=== PATIENT | male | born 1990 | race African-American/Black ===

== ENCOUNTER 2016-08-30 21:22 | Emergency (ER) | payer SELFPAY ==
--- NOTE | 2016-08-30 21:52 | ER Document Report ---
ED Medical Screen (RME) - General Stated Complaint: SORE THROAT Notes: sore throat since saturday denies neck pain intermittent headache, fevers I have greeted and performed a rapid initial assessment of this patient. A comprehensive ED assessment and evaluation of the patient, analysis of test results and completion of the medical decision making process will be conducted by additional ED providers. TRAVEL OUTSIDE OF THE [place] IN LAST 30 DAYS: No - Related Data Allergies/Adverse Reactions: No Known Allergies Allergy (Unverified 07/19/16 05:52)
[2016-08-30] MEDS ORDERED: DEXAMETHASONE SOD PHOS INJ 10 MG/1 ML VIAL IM ONE (23:12)
[2016-08-30] MEDS ORDERED: PENICILLIN G BENZATHINE 1.2 MILLION UNIT/2 ML DISP.SYRIN IM ONE (23:12)
[2016-08-30] MEDS ORDERED: DEXAMETHASONE 4 MG TABLET PO ONE (23:13)
--- NOTE | 2016-08-30 23:17 | ER Document Report ---
ED General - General Chief Complaint: Sore Throat Stated Complaint: SORE THROAT Notes: Patient is a 25-year-old male without past medical history who presents with 2 days of sore throat, fever, and difficulty swallowing. States he's been able to breathe without difficulty and has been able to tolerate his oral secretions but that it hurts to eat or drink. States he's had similar symptoms in the past when he has had strep throat. He has not seen his primary care physician regarding today's concerns. Nothing improves or worsens his discomfort. He denies any headache, neck pain, altered mental status, cough, sputum production , vomiting or diarrhea. TRAVEL OUTSIDE OF THE [place] IN LAST 30 DAYS: No - Related Data Allergies/Adverse Reactions: No Known Allergies Allergy (Unverified 07/19/16 05:52) Past Medical History - General Information source: Patient - Social History Smoking Status: Never Smoker Frequency of alcohol use: None Drug Abuse: None Lives with: Spouse/Significant other Family History: Reviewed & Not Pertinent Patient has suicidal ideation: No Patient has homicidal ideation: No Renal/ Medical History: Denies: Hx Peritoneal Dialysis Review of Systems - Review of Systems Notes: Constitutional: Positive for fever. HENT: Positive sore throat. Eyes: Negative for visual changes. Cardiovascular: Negative for chest pain. Respiratory: Negative for shortness of breath. Gastrointestinal: Negative for abdominal pain, vomiting or diarrhea. Genitourinary: Negative for dysuria. Musculoskeletal: Negative for back pain. Skin: Negative for rash. Neurological: Negative for headaches, weakness or numbness. 10 point ROS negative except as marked above and in HPI. Physical Exam - Vital signs Vitals: Temp Pulse Resp BP Pulse Ox 98.4 F 76 18 125/81 99 08/30/16 21:51 08/30/16 21:51 08/30/16 21:51 08/30/16 21:51 08/30/16 21:51 Interpretation: Normal Notes: PHYSICAL EXAMINATION: GENERAL: Well-appearing, well-nourished and in no acute distress. HEAD: Atraumatic, normocephalic. EYES: Pupils equal round and reactive to light, extraocular movements intact, sclera anicteric, conjunctiva are normal. ENT: nares patent, oropharynx clear without exudates. Palatal petechiae are present. No oral pharyngeal edema or swelling. Moist mucous membranes. NECK: Normal range of motion, bilateral submandibular and anterior cervical lymphadenopathy, no stridor LUNGS: Breath sounds clear to auscultation bilaterally and equal. No wheezes rales or rhonchi. HEART: Regular rate and rhythm without murmurs ABDOMEN: Soft, nontender, normoactive bowel sounds. No guarding, no rebound. No masses appreciated. EXTREMITIES: Normal range of motion, no pitting or edema. No cyanosis. NEUROLOGICAL: No focal neurological deficits. Moves all extremities spontaneously and on command. PSYCH: Normal mood, normal affect. SKIN: Warm, Dry, normal turgor, no rashes or lesions noted. Course - Re-evaluation Re-evalutation: 08/30/16 23:13 Presentation of several days of sore throat in an otherwise well-appearing patient. Rapid strep is positive. History and exam are not consistent with a retropharyngeal abscess or peritonsillar abscess. Airway is patent. No difficulty handling oral secretions. Vitals within normal limits. Patient has been treated with an IM dose of penicillin. At this time will discharge with return precautions and follow-up recommendations. Verbal discharge instructions given a the bedside and opportunity for questions given. Medication warnings reviewed. Patient is in agreement with this plan and has verbalized understanding of return precautions and the need for primary care follow-up in the nex - Vital Signs Vital signs: Temp Pulse Resp BP Pulse Ox 98.1 F 75 16 108/93 H 99 08/30/16 23:23 08/30/16 23:23 08/30/16 23:23 08/30/16 23:23 08/30/16 23:23 Discharge - Discharge Clinical Impression: Strep pharyngitis Condition: Good Disposition: HOME, SELF-CARE Additional Instructions: You have been diagnosed with strep throat based on a positive strep test. You have been treated with a dose of penicillin here in the emergency department and do not need any additional antibiotics. You have also been given a dose of steroids to help with your throat discomfort. Please continue to take ibuprofen 600 mg every 6 hours or Tylenol 1000 mg every 6 hours as needed for throat discomfort. You can also gargle with salt water. Continue to drink plenty of fluids. Follow-up with your primary care doctor in the next several days. Return if you become unable to swallow, have difficulty breathing, pass out, have persistent vomiting that prevents you from being able to tolerate fluids, or have any other symptoms that are concerning to you. Forms: Return to Work
[2016-08-30 23:30] VITALS: BP 108/93
== END 2016-08-30 23:36 | disposition home or self-care (01) ==
LOC: ER 21:22
DX: J02.0 Streptococcal pharyngitis (principal); R50.9 Fever, unspecified
CPT/HCPCS: 87880; 99283

== ENCOUNTER 2017-06-01 22:55 | Emergency (ER) | payer SELFPAY ==
[2017-06-01] MEDS ORDERED: NORMAL SALINE 1000 ML 1,000 ML IV ONE (23:33)
[2017-06-01] MEDS ORDERED: ONDANSETRON HCL INJ/PF 4 MG/2 ML SDV IV ONE (23:33)
--- NOTE | 2017-06-01 23:53 | ER Document Report ---
ED General - General Chief Complaint: Shortness Of Breath Stated Complaint: DIFFICULTY BREATHING Time Seen by Provider: 06/01/17 23:23 Mode of Arrival: Ambulatory Information source: Patient Notes: Patient states that he was lying down to go to bed around 11:00 and developed shortness of breath, weakness and dizziness. Patient does complain of some nausea. Patient denies any vomiting or diarrhea. Patient states that after his dyspnea symptoms started he did start to develop left-sided abdominal tenderness. Patient denies any chest pain. Patient is 4 days status post laparoscopic appendectomy. Patient denies any bowel movement after his surgery. TRAVEL OUTSIDE OF THE [place] IN LAST 30 DAYS: No - HPI Onset: Just prior to arrival Onset/Duration: Sudden Quality of pain: Achy, Dull Pain Level: 2 Associated symptoms: Nausea, Shortness of breath, Weakness. denies: Chest pain , Nonproductive cough, Productive cough, Diarrhea, Fever, Vomiting Exacerbated by: Denies Relieved by: Denies Similar symptoms previously: No Recently seen / treated by doctor: Yes - Related Data Allergies/Adverse Reactions: No Known Allergies Allergy (Verified 06/01/17 23:10) Past Medical History - General Information source: Patient - Social History Smoking Status: Current Every Day Smoker Frequency of alcohol use: None Drug Abuse: None Occupation: Retail Lives with: Family Family History: Reviewed & Not Pertinent Patient has suicidal ideation: No Patient has homicidal ideation: No - Medical History Medical History: Negative Pulmonary Medical History: Reports: Hx Asthma Renal/ Medical History: Denies: Hx Peritoneal Dialysis Past Surgical History: Reports: Hx Appendectomy - Immunizations Hx Diphtheria, Pertussis, Tetanus Vaccination: Yes Review of Systems - Review of Systems Constitutional: No symptoms reported. denies: Fever EENT: No symptoms reported Cardiovascular: Dizziness. denies: Chest pain, Palpitations Respiratory: Short of breath. denies: Cough Gastrointestinal: Abdominal pain, Nausea. denies: Diarrhea, Vomiting Genitourinary: Frequency. denies: Dysuria Male Genitourinary: No symptoms reported Musculoskeletal: No symptoms reported. denies: Back pain Skin: No symptoms reported Hematologic/Lymphatic: No symptoms reported Neurological/Psychological: No symptoms reported Physical Exam - Vital signs Vitals: Temp Pulse BP Pulse Ox 98.3 F 92 119/80 100 06/01/17 23:09 06/01/17 23:09 06/01/17 23:09 06/01/17 23:09 - General General appearance: Alert In distress: Mild - HEENT Head: Normocephalic, Atraumatic Eyes: Normal Conjunctiva: Normal Nasal: Normal Mouth/Lips: Normal Mucous membranes: Normal Neck: Normal, Supple. No: Lymphadenopathy - Respiratory Respiratory status: Tachypnea Chest status: Nontender Breath sounds: Normal. No: Nonproductive cough, Productive cough Chest palpation: Normal. No: Tender - Cardiovascular Rhythm: Regular Heart sounds: S1 appreciated, S2 appreciated Murmur: No - Abdominal Inspection: Healed incision - lap incision sites with steri strips Distension: No distension Bowel sounds: Normal Tenderness: Tender - Left middle quad tenderness Organomegaly: No organomegaly - Back Back: Normal, Nontender. No: CVA tenderness, Vertebra tenderness - Extremities General upper extremity: Normal inspection, Normal ROM General lower extremity: Normal inspection, Normal ROM - Neurological Neuro grossly intact: Yes Cognition: Normal [place] Coma Scale Eye Opening: Spontaneous Rico Coma Scale Verbal: Oriented Rico Coma Scale Motor: Obeys Commands [place] Coma Scale Total: 15 - Psychological Associated symptoms: Normal affect, Normal mood - Skin Skin Temperature: Warm Skin Moisture: Dry Skin Color: Normal Course - Re-evaluation Re-evalutation: 06/01/17 23:[address] Peralta regarding patient presentation, EKG reviewed. Agrees with plan for cardiac enzyme testing. 06/02/17 01:00 While in CAT scan receiving the dye, patient had a sudden onset of nausea with vomiting. Patient was injected with dye and the CTA was performed although trim technician was not able to get the abdominal imaging performed with IV contrast. Additional nausea medications were ordered. 06/02/17 01:58 Pt states that dyspnea symptoms seem to be better at this time. Patient is a feeling very restless and is standing at bedside. We will give Benadryl to treat for medication effects from Compazine. 06/02/17 03:31 Patient reports that abdominal pain is resolved. Patient denies any dyspnea symptoms. Patient does complain of continued to feel restless after taking the Compazine. Additional dose of Benadryl will be given. Consulted with Dr. Raya regarding patient presentation, reviewed EKG as well as diagnostic test results, with discharge plan of care. - Vital Signs Vital signs: Temp Pulse Resp BP Pulse Ox 98.3 F 92 22 H 118/99 H 97 06/01/17 23:09 06/01/17 23:09 06/02/17 03:01 06/02/17 03:00 06/02/17 03:01 - Laboratory Result Diagrams: 06/01/17 23:41 06/01/17 23:41 Laboratory results interpreted by me: 06/01/17 06/01/17 06/02/17 23:41 23:41 02:31 RDW 14.7 H Plt Count 144 L Chloride 108 H Carbon Dioxide 21 L Urine Urobilinogen 2.0 H Labs- Entire Visit 06/01/17 06/01/17 06/01/17 23:41 23:41 23:41 WBC 6.1 RBC 5.21 Hgb 15.6 Hct 44.6 MCV 86 MCH 29.8 MCHC 34.9 RDW 14.7 H Plt Count 144 L Seg Neutrophils % 44.5 Lymphocytes % 42.5 Monocytes % 7.4 Eosinophils % 5.0 Basophils % 0.6 Absolute Neutrophils 2.7 Absolute Lymphocytes 2.6 Absolute Monocytes 0.4 Absolute Eosinophils 0.3 Absolute Basophils 0.0 Sodium 142.6 Potassium 4.3 Chloride 108 H Carbon Dioxide 21 L Anion Gap 14 BUN 14 Creatinine 1.05 Est GFR ( Amer) > 60 Est GFR (Non-Af Amer) > 60 Glucose 97 Calcium 10.1 Total Bilirubin 0.6 Direct Bilirubin 0.4 Indirect Bilirubin Not Reportable Neonat Total Bilirubin Not Reportable AST 33 ALT 45 Alkaline Phosphatase 58 Creatine Kinase 69 CK-MB (CK-2) < 0.22 Troponin I < 0.012 Total Protein 7.4 Albumin 4.4 Lipase 92.2 Urine Color Urine Appearance Urine pH Ur Specific [place] Urine Protein Urine Glucose (UA) Urine Ketones Urine Blood Urine Nitrite Urine Bilirubin Urine Urobilinogen Ur Leukocyte Esterase Urine WBC (Auto) Urine RBC (Auto) Squamous Epi Cells Auto Urine Mucus (Auto) Urine Ascorbic Acid 06/02/17 02:31 WBC RBC Hgb Hct MCV MCH MCHC RDW Plt Count Seg Neutrophils % Lymphocytes % Monocytes % Eosinophils % Basophils % Absolute Neutrophils Absolute Lymphocytes Absolute Monocytes Absolute Eosinophils Absolute Basophils Sodium Potassium Chloride Carbon Dioxide Anion Gap BUN Creatinine Est GFR ( Amer) Est GFR (Non-Af Amer) Glucose Calcium Total Bilirubin Direct Bilirubin Indirect Bilirubin Neonat Total Bilirubin AST ALT Alkaline Phosphatase Creatine Kinase CK-MB (CK-2) Troponin I Total Protein Albumin Lipase Urine Color YELLOW Urine Appearance CLEAR Urine pH 6.0 Ur Specific [place] > 1.060 Urine Protein NEGATIVE Urine Glucose (UA) NEGATIVE Urine Ketones NEGATIVE Urine Blood NEGATIVE Urine Nitrite NEGATIVE Urine Bilirubin NEGATIVE Urine Urobilinogen 2.0 H Ur Leukocyte Esterase NEGATIVE Urine WBC (Auto) 1 Urine RBC (Auto) 1 Squamous Epi Cells Auto 1 Urine Mucus (Auto) RARE Urine Ascorbic Acid NEGATIVE - Diagnostic Test Radiology reviewed: Reports reviewed Discharge - Discharge Clinical Impression: Hx of appendectomy, episode of dyspnea, now resolved Abdominal pain Qualifiers: Abdominal location: unspecified location Qualified Code(s): R10.9 - Unspecified abdominal pain Nausea & vomiting Qualifiers: Vomiting type: unspecified Vomiting Intractability: non-intractable Qualified Code(s): R11.2 - Nausea with vomiting, unspecified Condition: Stable Disposition: HOME, SELF-CARE Instructions: Abdominal Pain ([facility]), Antinausea Medication ([facility]), Dyspnea, Nonspecific ([facility]), Intravenous (IV) Fluids ([facility]), Vomiting ([facility]) Additional Instructions: Return immediately for any new or worsening symptoms Followup with your primary care provider, call tomorrow to make a followup appointment Follow-up with your surgeon for recheck, call tomorrow for an appointment time Prescriptions: Ondansetron HCl [Zofran 4 mg Tablet] 1 - 2 tab PO Q6 PRN #15 tablet PRN Reason: Forms: Return to Work Referrals: [facility] [Provider Group] - Follow up as needed
[2017-06-01 23:58] LABS: ABSOLUTE EOSINOPHILS # (AUTO) 0.3 10^3/uL (0.0-0.6); ABSOLUTE LYMPHOCYTES (AUTO) 2.6 10^3/uL (0.5-4.7); ABSOLUTE MONOCYTES (AUTO) 0.4 10^3/uL (0.1-1.4); ABSOLUTE NEUT (AUTO) 2.7 10^3/uL (1.7-8.2); BASOPHILS % (AUTO) 0.6 % (0-2); HEMATOCRIT 44.6 % (37.9-51.0); HEMOGLOBIN 15.6 g/dL (13.5-17.0); HGB HCT DIFFERENCE 2.2; LYMPHOCYTES % (AUTO) 42.5 % (13-45); MEAN CORPUSCULAR HEMOGLOBIN 29.8 pg (27.0-33.4); MEAN CORPUSCULAR HGB CONC 34.9 g/dL (32.0-36.0); MEAN CORPUSCULAR VOLUME 86 fl (80-97); MONOCYTES % (AUTO) 7.4 % (3-13); RED BLOOD COUNT 5.21 10^6/uL (4.35-5.55); RED CELL DISTRIBUTION WIDTH 14.7 % (11.5-14.0); SEGMENTED NEUTROPHILS % (AUTO) 44.5 % (42-78); WHITE BLOOD COUNT 6.1 10^3/uL (4.0-10.5)
[2017-06-02 00:14] LABS: ALANINE AMINOTRANSFERASE 45 U/L (21-72); ALBUMIN 4.4 g/dL (3.5-5.0); ALKALINE PHOSPHATASE 58 U/L (38-126); ANION GAP 14 (5-19); ASPARTATE AMINO TRANSFERASE 33 U/L (17-59); BILIRUBIN,DIRECT 0.4 mg/dL (0.0-0.4); BILIRUBIN,TOTAL 0.6 mg/dL (0.2-1.3); BLOOD UREA NITROGEN 14 mg/dL (7-20); CALCIUM 10.1 mg/dL (8.4-10.2); CARBON DIOXIDE 21 mmol/L (22-30); CHLORIDE 108 mmol/L (98-107); CREATINE KINASE 69 U/L (55-170); CREATININE RESULT 1.05 mg/dL (0.52-1.25); GLUCOSE 97 mg/dL (75-110); LIPASE 92.2 U/L (23-300); POTASSIUM 4.3 mmol/L (3.6-5.0); SODIUM 142.6 mmol/L (137-145); TOTAL PROTEIN 7.4 g/dL (6.3-8.2)
[2017-06-02 00:26] LABS: CREATINE KINASE MB < 0.22 ng/mL (<4.55); TROPONIN I < 0.012 ng/mL
[2017-06-02] MEDS ORDERED: PROCHLORPERAZINE EDISYLATE INJ 10 MG/2 ML VIAL IV ONE (00:46)
[2017-06-02] MEDS ORDERED: DIPHENHYDRAMINE HCL 50 MG/ML VIAL IV ONE ×2 (01:58→03:27)
--- NOTE | 2017-06-02 02:05 | RADIOLOGY REPORT (SQ) ---
EXAM DESCRIPTION: CTA CHEST COMPLETED DATE/TIME: 06/02/2017 1:20 am REASON FOR STUDY: dyspnea, dizziness, recent appendectomy COMPARISON: Chest x-ray 07/19/2016, CT abdomen and pelvis 06/02/2017. TECHNIQUE: CT scan of the chest performed using helical scanning technique with dynamic intravenous contrast injection. Images reviewed with lung, soft tissue and bone windows. Reconstructed coronal and sagittal MPR images reviewed. Additional 3 dimensional post-processing performed to develop Maximal Intensity Projection images (CA P). All images stored on PACS. All CT scanners at this facility use dose modulation, iterative reconstruction, and/or weight based d osing when appropriate to reduce radiation dose to as low as reasonably achievable (ALARA). [facility]: Dose Right [facility]: CareDose [facility]: Dose Right [facility]: Teradose 4D [facility]: [employer] CONTRAST TYPE AND DOSE: contrast/concentration: Isovue 370.00 mg/ml; Total Contrast Delivered: 65.0 ml; Total Saline Delivered: 105.1 ml Contrast bolus optimized for the pulmonary arteries. Not diagnostic for the aorta. RENAL FUNCTION: None required. The patient is less than 50 years old. RADIATION DOSE: Up-to-date CT equipment and radiation dose reduction techniques were employed. CTDIv ol: 15.4 - 19.8 mGy. DLP: 575 mGy-cm. . LIMITATIONS: There is motion artifact. FINDINGS: LUNGS AND PLEURA: Ground-glass opacities are seen along the posterior aspect of the right upper lobe. No pleural effusion or pneumothorax. AORTA AND GREAT VESSELS: No thoracic aortic aneurysm. Contrast bolus not optimized for the aorta. HEART: No pericardial effusion. No significant coronary artery calcifications. PULMONARY ARTERIES: No emboli visualized in the main pulmonary arteries or the segmental branches. HILAR AND MEDIASTINAL STRUCTURES: No identified masses or abnormal nodes. HARDWARE: None in the chest. UPPER ABDOMEN: See separate report of the CT of the abdomen. BONES: No acute findings. 3D MIPS: Confirm above findings. IMPRESSION: No pulmonary emboli. Ground-glass opacities along the posterior aspect of the right upper lobe, may be secondary to atelec tasis or developing pneumonia. COMMENT: Quality ID # [id number]: Final reports with documentation of one or more dose reduction techniques (e.g., Automated exposure control, adjustment of the mA and/or kV according to patient size, use of iterative reconstruction technique) TECHNICAL DOCUMENTATION: JOB ID: [id number] 2010 [facility] [employer] [email or web address]- All Rights Reserved
--- NOTE | 2017-06-02 02:14 | RADIOLOGY REPORT (SQ) ---
EXAM DESCRIPTION: CT ABD/PELVIS WITH ORAL AND IV COMPLETED DATE/TIME: 06/02/2017 1:20 am REASON FOR STUDY: dyspnea, L side abd pain, recent lap appy 4 days ago. COMPARISON: CT angiogram chest 06/02/2017. TECHNIQUE: CT scan of the abdomen and pelvis performed with intravenous and oral contrast using chelsea sylvain scanning technique with dynamic intravenous contrast injection. Images reviewed with lung, soft t issue, and bone windows. Reconstructed coronal and sagittal MPR images reviewed. Delayed images were not acquired. All images stored on PACS. All CT scanners at this facility use dose modulation, iterative reconstruction, and/or weight based d osing when appropriate to reduce radiation dose to as low as reasonably achievable (ALARA). [facility]: Dose Right [facility]: CareDose [facility]: Dose Right [facility]: Teradose 4D [facility]: Apliiq CONTRAST TYPE AND DOSE: 66 mL Isovue 370- low osmolar. RENAL FUNCTION: GFR > 60. RADIATION DOSE: Up-to-date CT equipment and radiation dose reduction techniques were employed. CTDIv ol: 5.0 mGy. DLP: 247 mGy-cm.. LIMITATIONS: There is motion artifact. FINDINGS: LOWER CHEST: See separate report of the CT of the chest. LIVER: Normal size. No masses. No dilated ducts. SPLEEN: Normal size. PANCREAS: No significant calcifications. No adjacent inflammation or peripancreatic fluid collections . Pancreatic duct not dilated. GALLBLADDER: Present. ADRENAL GLANDS: No significant masses or asymmetry. RIGHT KIDNEY AND URETER: There is a 1 cm hypodense lesion at the right kidney, probably a small cyst. No significant calcification. No hydronephrosis or hydroureter. LEFT KIDNEY AND URETER: No significant calcification. No hydronephrosis or hydroureter. AORTA AND VESSELS: No abdominal aortic aneurysm. RETROPERITONEUM: No retroperitoneal adenopathy, hemorrhage or masses. BOWEL AND PERITONEAL CAVITY: No dilated bowel loops. No bowel obstruction, the oral contrast has chasidy ched the rectum. No free fluid or free air. APPENDIX: Surgically absent. PELVIS: The urinary bladder is partially distended. No pelvic mass. No free fluid. ABDOMINAL WALL: Mild soft tissue stranding and subcutaneous emphysema in the periumbilical region, pr obably related to recent surgery. BONES: There is bilateral pars defect at L5. No significant listhesis. IMPRESSION: Mild soft tissue stranding and subcutaneous emphysema in the paraumbilical region, proba chetna related to recent surgery. Otherwise, no acute findings. TECHNICAL DOCUMENTATION: JOB ID: [id number] [place]- Quality ID # [id number]: Final reports with documentation of one or more dose reduction techniques (e.g., Au tomated exposure control, adjustment of the mA and/or kV according to patient size, use of iterative reconstruction technique) 2010 [email or web address]- All Rights Reserved
[2017-06-02 02:47] LABS: APPEARANCE,URINE CLEAR; BILIRUBIN,URINE NEGATIVE (NEGATIVE); GLUCOSE, URINE NEGATIVE (NEGATIVE); KETONES,URINE NEGATIVE (NEGATIVE); LEUKOCYTE ESTERASE,URINE NEGATIVE (NEGATIVE); NITRITE,URINE NEGATIVE (NEGATIVE); PROTEIN,URINE NEGATIVE (NEGATIVE); URINE SPECIFIC GRAVITY > 1.060
[2017-06-02 03:34] VITALS: BP 118/99
--- NOTE | 2017-06-02 07:54 | EKG REPORT ---
SEVERITY:- ABNORMAL ECG - SINUS RHYTHM ST ELEVATION SUGGESTS NORMAL VARIANT : Confirmed by: Tristen Curran MD 02-Jun-2017 07:54:05
== END 2017-06-02 03:39 | disposition home or self-care (01) ==
LOC: ER 22:55
DX: R06.02 Shortness of breath (principal); R10.9 Unspecified abdominal pain; R11.2 Nausea with vomiting, unspecified; R53.1 Weakness; R42 Dizziness and giddiness; R45.1 Restlessness and agitation; T43.3X5A Adverse effect of phenothiazine antipsychotics and neuroleptics, initial encounter; Y92.238 Other place in hospital as the place of occurrence of the external cause; R35.0 Frequency of micturition; J45.909 Unspecified asthma, uncomplicated; F17.200 Nicotine dependence, unspecified, uncomplicated; Z90.49 Acquired absence of other specified parts of digestive tract
CPT/HCPCS: 93005; 96376; 99285; 96361; 96374; 96375; 36415; 82553; 82550; 83690; 85025; 80053; 81001; 84484; 71275; 74176; 93010; J1200; J0780; J2405; J7030

== ENCOUNTER 2018-04-27 11:39 | Emergency (ER) | payer BC ==
[2018-04-27 11:47] VITALS: BP 117/74
[2018-04-27] MEDS ORDERED: LIDOCAINE 1% INJ-PF (10 MG/ML) 30 ML SDV ONE (12:31)
[2018-04-27] MEDS ORDERED: HYDROMORPHONE HCL INJ/PF 2 MG/ML AMPULE ONE (12:56)
[2018-04-27] MEDS ORDERED: HYDROCODONE/ACETAMINOPHEN 5-325 MG (6 TAB/ER DISP) PO PRN (13:13)
[2018-04-27] MEDS ORDERED: HYDROMORPHONE HCL INJ/PF 2 MG/ML AMPULE IV ONE (13:13)
--- NOTE | 2018-04-27 13:13 | ER Document Report ---
ED General - General Chief Complaint: Finger Injury Stated Complaint: RING STUCK ON FINGER TRAVEL OUTSIDE OF THE [place] IN LAST 30 DAYS: No - HPI Patient complains to provider of: Ring stuck on left hand Notes: Patient has a ring consistent of the middle of this looks to stainless steel or tungsten coming in today after some swelling to his finger denies any injury states he cannot remove the ring. Patient denies any other past medical history. - Related Data Allergies/Adverse Reactions: No Known Allergies Allergy (Verified 06/01/17 23:10) Past Medical History - Social History Smoking Status: Never Smoker Family History: Reviewed & Not Pertinent Patient has suicidal ideation: No Patient has homicidal ideation: No Pulmonary Medical History: Reports: Hx Asthma Renal/ Medical History: Denies: Hx Peritoneal Dialysis Past Surgical History: Reports: Hx Appendectomy - Immunizations Hx Diphtheria, Pertussis, Tetanus Vaccination: Yes Review of Systems - Review of Systems Constitutional: No symptoms reported EENT: No symptoms reported Cardiovascular: No symptoms reported Respiratory: No symptoms reported Gastrointestinal: No symptoms reported Genitourinary: No symptoms reported Male Genitourinary: No symptoms reported Musculoskeletal: No symptoms reported Skin: No symptoms reported Hematologic/Lymphatic: No symptoms reported Neurological/Psychological: No symptoms reported -: Yes All other systems reviewed and negative - Ring stuck on finger Physical Exam - Vital signs Vitals: Temp Pulse Resp BP Pulse Ox 98.4 F 67 14 117/74 99 04/27/18 11:45 04/27/18 11:45 04/27/18 11:45 04/27/18 11:45 04/27/18 11:45 Interpretation: Normal - General General appearance: Appears well, Alert - HEENT Head: Normocephalic, Atraumatic Eyes: Normal Pupils: PERRL - Respiratory Respiratory status: No respiratory distress Chest status: Nontender Breath sounds: Normal Chest palpation: Normal - Cardiovascular Rhythm: Regular Heart sounds: Normal auscultation Murmur: No - Abdominal Inspection: Normal Distension: No distension Bowel sounds: Normal Tenderness: Nontender Organomegaly: No organomegaly - Back Back: Normal, Nontender - Extremities General upper extremity: Nontender, Normal color, Normal ROM, Normal temperature. No: Normal inspection - Left hand infected right hand with a ring stuck on the fourth digit with swelling General lower extremity: Normal inspection, Nontender, Normal color, Normal ROM , Normal temperature, Normal weight bearing. No: Jj's sign - Neurological Neuro grossly intact: Yes Cognition: Normal Orientation: AAOx4 [place] Coma Scale Eye Opening: Spontaneous [place] Coma Scale Verbal: Oriented [place] Coma Scale Motor: Obeys Commands [place] Coma Scale Total: 15 Speech: Normal Motor strength normal: LUE, RUE, LLE, RLE Sensory: Normal - Psychological Associated symptoms: Normal affect, Normal mood - Skin Skin Temperature: Warm Skin Moisture: Dry Skin Color: Normal Course - Re-evaluation Re-evalutation: 04/28/18 21:01 See procedure note for ring removal. Afterwards patient had capillary refill intact - Vital Signs Vital signs: Temp Pulse Resp BP Pulse Ox 98.4 F 67 14 117/74 99 04/27/18 11:45 04/27/18 11:45 04/27/18 11:45 04/27/18 11:45 04/27/18 11:45 Procedures - Additional Procedures Ring removal with digital block Notes: 04/28/18 21:02 The webbing between the third and fourth fourth and fifth finger on the right- hand side was cleaned with alcohol with instillation in the webbing of approximately 2 cc of lidocaine Using 2-0 Prolene the finger was wrapped multiple times with the Prolene with advancement of the ring this was occurred multiple times to push the swelling down so that we could advance to ring during the procedure the finger did become pale at the fingertip however after successful ring removal the color to the finger and sensation did return patient tolerated procedure well Discharge - Discharge Clinical Impression: ring removal Condition: Good Disposition: HOME, SELF-CARE Additional Instructions: Take pain medication as needed return to ER for any worsening of symptoms. Follow-up with your primary care physician. Prescriptions: Ibuprofen [Motrin 600 mg Tablet] 600 mg PO Q8HP PRN #21 tablet PRN Reason:
[2018-04-27] MEDS ORDERED: LIDOCAINE 2% INJ (20 MG/ML) 20 ML MDV INJ ONE (13:15)
== END 2018-04-27 13:21 | disposition home or self-care (01) ==
LOC: ER 11:39
DX: S69.82XA Other specified injuries of left wrist, hand and finger(s), initial encounter (principal); W49.04XA Ring or other jewelry causing external constriction, initial encounter
CPT/HCPCS: 99283; 96374; 64450; A6266; J3490; J1170

== ENCOUNTER → 2019-07-01 | Outpatient (CLI) | payer BC ==
--- NOTE | 2019-07-01 15:29 | RADIOLOGY REPORT (SQ) ---
EXAM DESCRIPTION: HAND RIGHT 3 VIEWS COMPLETED DATE/TIME: 07/01/2019 1:49 pm REASON FOR STUDY: ANKYLOSIS M24.641 ANKYLOSIS, RIGHT HAND COMPARISON: None. EXAM PARAMETERS: NUMBER OF VIEWS: Three views. TECHNIQUE: AP, lateral and oblique radiographic images acquired of the right hand. LIMITATIONS: None. FINDINGS: MINERALIZATION: Normal. BONES: No acute fracture or osseous lesion. JOINTS: No dislocation. SOFT TISSUES: No soft tissue swelling or radiopaque foreign body. OTHER: No other finding. IMPRESSION: No acute osseous abnormality of the right hand. TECHNICAL DOCUMENTATION: JOB ID: [id number] [employer]- All Rights Reserved Reading location - IP/workstation name: [email or web address]
== END ==
LOC: OD 13:38
PROVIDERS: ATTEND Internal Medicine
DX: M24.641 Ankylosis, right hand (principal)

== ENCOUNTER 2019-08-23 21:45 | Emergency (ER) | payer BC ==
[2019-08-23 21:53] VITALS: BP 142/79
--- NOTE | 2019-08-23 21:59 | ER Document Report ---
ED General - General Stated Complaint: JAW INJURY Time Seen by Provider: 08/23/19 21:58 Primary Care Provider: ELADIA GALEANA MD [Primary Care Provider] - Follow up in 3-5 days Notes: 28-year-old male presents with right jaw pain while eating. Patient states he feels like he may have dislocated it. Patient denies this ever occurring previously. Denies any other injuries. TRAVEL OUTSIDE OF THE [place] IN LAST 30 DAYS: No - Related Data Allergies/Adverse Reactions: No Known Allergies Allergy (Verified 06/01/17 23:10) Past Medical History - Social History Smoking Status: Unknown if Ever Smoked Family History: Reviewed & Not Pertinent Pulmonary Medical History: Reports: Hx Asthma Renal/ Medical History: Denies: Hx Peritoneal Dialysis Past Surgical History: Reports: Hx Appendectomy - Immunizations Hx Diphtheria, Pertussis, Tetanus Vaccination: Yes Review of Systems - Review of Systems Notes: Constitutional: Negative for fever. HENT: Positive for right jaw pain. Negative for sore throat. Eyes: Negative for visual changes. Cardiovascular: Negative for chest pain. Respiratory: Negative for shortness of breath. Gastrointestinal: Negative for abdominal pain, vomiting or diarrhea. Genitourinary: Negative for dysuria. Musculoskeletal: Negative for back pain. Skin: Negative for rash. Neurological: Negative for headaches, weakness or numbness. 10 point ROS negative except as marked above and in HPI. Physical Exam - Vital signs Vitals: Temp Pulse Resp BP Pulse Ox 98.2 F 75 16 142/79 H 98 08/23/19 21:52 08/23/19 21:52 08/23/19 21:52 08/23/19 21:52 08/23/19 21:52 - Notes Notes: GENERAL: Well-appearing, well-nourished and in no acute distress. HEAD: Atraumatic, normocephalic. EYES: Extraocular movements intact, sclera anicteric, conjunctiva are normal. JAW: No trismus. Able to open mouth fully. Mild tenderness to right jaw. Able to hold tongue depressor in teeth. NECK: Normal range of motion, supple without lymphadenopathy or JVD. EXTREMITIES: Normal range of motion, no pitting or edema. No clubbing or cyanosis. NEUROLOGICAL: Cranial nerves II through XII grossly intact. Normal speech, normal gait. PSYCH: Normal mood, normal affect. SKIN: Warm, Dry, normal turgor, no rashes or lesions noted. Course - Re-evaluation Re-evalutation: 08/23/19 nontoxic, well-appearing 28-year-old male presents with right jaw pain feeling like he may have dislocated it while eating. No trismus. Patient is able to open mouth fully. Patient is also able to hold a tongue depressor bet ween his teeth without difficulty. Exam is consistent with TMJ dysfunction. Patient given close follow-up with PCP. Strict return precautions given. Patient voices understanding and agrees with plan of care. - Vital Signs Vital signs: Temp Pulse Resp BP Pulse Ox 98.2 F 75 16 142/79 H 98 08/23/19 21:52 08/23/19 21:52 08/23/19 21:52 08/23/19 21:52 08/23/19 21:52 Discharge - Discharge Clinical Impression: TMJ tenderness, right Condition: Stable Disposition: HOME, SELF-CARE Instructions: Temporomandibular Joint Injury ([facility]), Temporomandibular Joint Syndrome ([facility]) Additional Instructions: Please take ibuprofen or Tylenol for pain. Please follow-up with your primary care doctor 1 of the clinics listed in 3 to 5 days. If continues may need to see a dentist or an oral surgeon. Return immediately to ER if you start having any worsening symptoms, including fever, inability to open mouth, increased pain, chest pain, shortness of breath, nausea/vomiting, or any other symptoms that are concerning to you. Referrals: ELADIA GALEANA MD [Primary Care Provider] - Follow up in 3-5 days
== END 2019-08-23 22:00 | disposition home or self-care (01) ==
LOC: ER 21:45
DX: M26.601 Right temporomandibular joint disorder, unspecified (principal)
CPT/HCPCS: 99283

== ENCOUNTER 2019-10-12 18:01 | Emergency (ER) | payer BC ==
[2019-10-12 19:13] LABS: A TYPE INFLUENZA AG NEGATIVE (NEGATIVE)
[2019-10-12 19:14] LABS: B INFLUENZA AG NEGATIVE (NEGATIVE)
--- NOTE | 2019-10-12 19:45 | RADIOLOGY REPORT (SQ) ---
EXAM DESCRIPTION: CHEST SINGLE VIEW COMPLETED DATE/TIME: 10/12/2019 7:20 pm REASON FOR STUDY: sob COMPARISON: 07/19/2016 EXAM PARAMETERS: NUMBER OF VIEWS: One view. TECHNIQUE: Single frontal radiographic view of the chest acquired. RADIATION DOSE: NA LIMITATIONS: None. FINDINGS: LUNGS AND PLEURA: No opacities, masses or pneumothorax. No pleural effusion. MEDIASTINUM AND HILAR STRUCTURES: No masses. Contour normal. HEART AND VASCULAR STRUCTURES: Heart normal in size. Normal vasculature. BONES: No acute findings. HARDWARE: None in the chest. OTHER: No other significant finding. IMPRESSION: NO ACUTE RADIOGRAPHIC FINDING IN THE CHEST. TECHNICAL DOCUMENTATION: JOB ID: [id number] 2010 [employer]- All Rights Reserved Reading location - IP/workstation name: [email or web address]
--- NOTE | 2019-10-12 20:06 | ER Document Report ---
ED General - General Chief Complaint: Shortness Of Breath Stated Complaint: RESPIRATORY DISTRESS Primary Care Provider: ELADIA GALEANA MD [Primary Care Provider] - Follow up as needed Mode of Arrival: Ambulatory Information source: Patient TRAVEL OUTSIDE OF THE [place] IN LAST 30 DAYS: No - HPI Onset: Other - over the last week Onset/Duration: Gradual Quality of pain: Achy Severity: Mild Pain Level: 1 Associated symptoms: Body/muscle aches, Nonproductive cough, Sore throat Exacerbated by: Denies Relieved by: Denies Similar symptoms previously: No Recently seen / treated by doctor: Yes - patient saw his PCP recently and was told his ashtma was flaring. Notes: 28 year old male with a history of Asthma here for 1 week of worsening shortness of breath, dry cough, sore throat, and body aches. The patient denies fevers and he has been checking. 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 The patient's has not been tested for COVID19. The patient says he saw his PCP last week and was told he could be having an asthma flare. The patient was given an albuterol inhaler which he has been using without much relief. The patient is fairly anxious during my exam. - Related Data Allergies/Adverse Reactions: No Known Allergies Allergy (Verified 06/01/17 23:10) Past Medical History - General Information source: Patient - Social History Smoking Status: Never Smoker Frequency of alcohol use: None Drug Abuse: None Lives with: Spouse/Significant other Family History: Reviewed & Not Pertinent Patient has suicidal ideation: No Patient has homicidal ideation: No Pulmonary Medical History: Reports: Hx Asthma Renal/ Medical History: Denies: Hx Peritoneal Dialysis Past Surgical History: Reports: Hx Appendectomy - Immunizations Hx Diphtheria, Pertussis, Tetanus Vaccination: Yes Review of Systems - Review of Systems Constitutional: No symptoms reported EENT: Nose discharge, Throat pain Cardiovascular: No symptoms reported Respiratory: Cough - nonproductive, Short of breath Gastrointestinal: No symptoms reported Genitourinary: No symptoms reported Male Genitourinary: No symptoms reported Musculoskeletal: No symptoms reported Skin: No symptoms reported Hematologic/Lymphatic: No symptoms reported Neurological/Psychological: No symptoms reported -: Yes All other systems reviewed and negative Physical Exam - Vital signs Vitals: Temp Pulse Resp BP Pulse Ox 98.0 F 106 H 15 197/82 H 100 03/23/20 18:05 10/12/19 18:05 10/12/19 18:05 10/12/19 18:05 10/12/19 18:05 - Notes Notes: GENERAL: Well-appearing, well-nourished and in no acute distress. Anxious HEAD: Atraumatic, normocephalic. EYES: Pupils equal round and reactive to light, extraocular movements intact, sclera anicteric, conjunctiva are normal. ENT: TMs normal, nares patent, oropharynx is mildly erythemarous but without exudates. Moist mucous membranes. NECK: Normal range of motion, supple without lymphadenopathy or JVD. LUNGS: Breath sounds clear to auscultation bilaterally and equal. No wheezes rales or rhonchi. HEART: Regular rate and rhythm without murmurs, rubs or gallops. ABDOMEN: Soft, nontender, normoactive bowel sounds. No guarding, no rebound. No masses appreciated. EXTREMITIES: Normal range of motion, no pitting or edema. No clubbing or cyanosis. NEUROLOGICAL: Cranial nerves II through XII grossly intact. Normal speech, normal gait. PSYCH: Normal mood, normal affect. SKIN: Warm, Dry, normal turgor, no rashes or lesions noted. Course - Re-evaluation Re-evalutation: 10/12/19 20:34 The patient is here for worsening shortness of breath for the last week along with a sore throat, cough, runny nose. The patient has not been having any fevers. The patient tested negative for Flu and Strep and his chest xray shows no acute process. 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 Patient is not acutely ill so will discharge him and have him self quarantine until his COVID19 test results. - Vital Signs Vital signs: Temp Pulse Resp BP Pulse Ox 98.6 F 82 20 131/61 H 100 10/12/19 18:27 10/12/19 18:27 10/12/19 18:27 10/12/19 18:19 10/12/19 18:27 - Diagnostic Test Radiology reviewed: Image reviewed, Reports reviewed Discharge - Discharge Clinical Impression: Shortness of breath, Cough, Sore throat Condition: Stable Disposition: HOME, SELF-CARE Instructions: Upper Respiratory Illness ([facility]) Additional Instructions: Use your previously prescribed inhaler for trouble breathing. Self Quarantine for 14 days or until your COVID19 testing comes back negative. Follow up with your primary care doctor. Drink plenty of fluids in the days to come and use Tylenol for body aches and fevers. Referrals: ELADIA GALEANA MD [Primary Care Provider] - Follow up as needed
[2019-10-12 22:06] VITALS: BP 135/98
== END 2019-10-12 22:10 | disposition home or self-care (01) ==
LOC: ER 18:01
DX: J06.9 Acute upper respiratory infection, unspecified (principal); R06.02 Shortness of breath; R05 Cough; M79.10 Myalgia, unspecified site; Z20.828 Contact with and (suspected) exposure to other viral communicable diseases
CPT/HCPCS: 36415; 71045; 87070; 87635; 87804; 87880; 99285